=== PATIENT | female | born 1985 | race Caucasian/White ===

== ENCOUNTER 2018-07-01 13:21 | Emergency (ER) | payer OTHER ==
[~2018-07-01] VITALS: Ht 149.9 cm; Wt 72.6 kg
--- NOTE | 2018-07-01 14:43 | ED Upper Extremity ---
General Chief Complaint: Laceration Stated Complaint: THUMB LACERATION Nursing Triage Note: TO ROOM WITH LACERATION TO L THUMB CUT ON KNIFE Nursing Sepsis Screen: No Definite Risk Source: patient Exam Limitations: no limitations History of Present Illness Date Seen by Provider: Jul 01, 2018 Time Seen by Provider: 14:41 Initial Comments To ER per private vehicle with reports of a laceration to the dorsal IP joint of the left thumb from a knife at work at [employer] is prior to arrival. Last tetanus vaccination date is unknown. Onset: just prior to arrival Severity: mild Pain/Injury Location: left thumb Modifying Factors: Worse With Movement Allergies and Home Medications Allergies Coded Allergies: hydrocodone (Verified Allergy, Unknown, 07/01/18) Patient Home Medication List Home Medication List Reviewed: Yes Review of Systems Constitutional: see HPI EENTM: see HPI Respiratory: no symptoms reported Cardiovascular: no symptoms reported Genitourinary: no symptoms reported Musculoskeletal: see HPI Skin: see HPI Psychiatric/Neurological: No Symptoms Reported Past Kibbfev-Lppkib-Ubghuw Hx Patient Social History Alcohol Use: Denies Use Recreational Drug Use: No Smoking Status: Never a Smoker Recent Foreign Travel: No Contact w/Someone Who Travel: No Recent Infectious Disease Expo: No Past Medical History Surgeries: Yes Tubal Ligation Cardiac: No Neurological: No Endocrine: No Integumentary: No Physical Exam Vital Signs Vital Signs - First Documented 07/01/18 13:21 Pulse 83 Resp 18 B/P (MAP) 118/76 (90) Pulse Ox 98 O2 Delivery Room Air Capillary Refill : Less Than 3 Seconds Height, Weight, BMI Height: 4'11.00" Weight: 160lbs. oz. [id number]; BMI Method:Stated General Appearance: WD/WN, no apparent distress HEENT: PERRL/EOMI, normal ENT inspection Neck: non-tender, full range of motion Respiratory: no respiratory distress, no accessory muscle use Shoulder: normal inspection, non-tender Elbow/Forearm: normal inspection, non-tender, Right Wrist: Yes normal inspection, Yes non-tender Hand: Left, laceration (there is a 1 cm superficial skin flap to the IP joint dorsally left thumb. Full extensor mechanism of the thumb intact. She does report numbness to the thumb distally but states that it may be because she was squeezing her thumb so hard. This will be closed with skin glue.) Neurologic/Psychiatric: alert, normal mood/affect, oriented x 3 Skin: normal color, warm/dry Progress/Results/Core Measures Results/Orders My Orders Orders - SYLVIA ANDRADE APRN Dipht,Pertuss(Acell),Tet Adult (Boostrix (07/01/18 14:45) Vital Signs/I&O 07/01/18 13:21 Pulse 83 Resp 18 B/P (MAP) 118/76 (90) Pulse Ox 98 O2 Delivery Room Air Blood Pressure Mean: 90 Departure Impression Primary Impression: Skin laceration Disposition: 01 HOME, SELF-CARE Condition: Stable Departure-Patient Inst. Decision time for Depature: 14:42 Referrals: NO,LOCAL PHYSICIAN (PCP/Family) Primary Care Physician Patient Instructions: Laceration Repair With Glue (DC) Add. Discharge Instructions: 1. Allow the glue to follow off on its own in 3-5 days 2. Wear the finger splint at all times except when showering to keep from bending the thumb and prematurely peeling loose the skin glue. Return to ER for any swelling redness or sign of infection. All discharge instructions reviewed with patient and/or family. Voiced understanding. SYLVIA ANDRADE APRN Jul 01, 2018 14:43
[2018-07-01] MEDS ORDERED: TETANUS,DIPTH,PERTUSS P/F (BOOSTRIX) 0.5 ML VIAL IM ONE (14:45)
[2018-07-01 15:10] VITALS: BP 118/76
== END 2018-07-01 15:10 | disposition home or self-care (01) ==
LOC: ER 13:29
DX: S61.012A Laceration without foreign body of left thumb without damage to nail, initial encounter (principal); Z88.5 Allergy status to narcotic agent; Z98.51 Tubal ligation status; Z23 Encounter for immunization; W26.0XXA Contact with knife, initial encounter; Y92.59 Other trade areas as the place of occurrence of the external cause; Y99.0 Civilian activity done for income or pay
CPT/HCPCS: 12001; 29130; 90471; 90715

== ENCOUNTER 2019-01-31 17:15 | Emergency (ER) | payer OTHER ==
[~2019-01-31] VITALS: Ht 154 cm; Wt 74.7 kg
[2019-01-31] MEDS ORDERED: NS IV 1000 ML 1,000 ML IV SCH (17:56)
[2019-01-31] MEDS ORDERED: ACETAMINOPHEN 325 MG TABLET PO ONE (18:00)
[2019-01-31] MEDS ORDERED: KETOROLAC 30 MG/ML VIAL IVP ONE (18:00)
[2019-01-31 18:25] LABS: BASOPHILS % (AUTO) 1 % (0-10); EOSINOPHILS # (AUTO) 0.3 10^3/uL (0.0-0.3); EOSINOPHILS % (AUTO) 3 % (0-10); HEMATOCRIT 38 % (35-52); HEMOGLOBIN 12.7 G/DL (11.5-16.0); LYMPHOCYTES # (AUTO) 2.6 X 10^3 (1.0-4.0); LYMPHOCYTES % (AUTO) 32 % (12-44); MEAN CORPUSCULAR HEMOGLOBIN 29 PG (25-34); MEAN CORPUSCULAR HGB CONC 33 G/DL (32-36); MEAN CORPUSCULAR VOLUME 88 FL (80-99); MEAN PLATELET VOLUME 11.3 FL (7.4-10.4); MONOCYTES # (AUTO) 0.5 X 10^3 (0.0-1.0); MONOCYTES % (AUTO) 6 % (0-12); NEUTROPHILS # (AUTO) 4.5 X 10^3 (1.8-7.8); NEUTROPHILS % (AUTO) 58 % (42-75); PLATELET COUNT 236 10^3/uL (130-400); RED CELL DISTRIBUTION WIDTH 13.2 % (10.0-14.5); WHITE BLOOD COUNT 7.9 10^3/uL (4.3-11.0)
[2019-01-31 18:47] LABS: BILIRUBIN,TOTAL 0.3 MG/DL (0.1-1.0); BUN/CREATININE RATIO 14; CALCIUM 9.3 MG/DL (8.5-10.1); CARBON DIOXIDE 23 MMOL/L (21-32); CHLORIDE 106 MMOL/L (98-107); CREATININE SERUM 0.66 MG/DL (0.60-1.30); GFR ESTIMATED > 60; GLUCOSE 111 MG/DL (70-105); POTASSIUM 3.9 MMOL/L (3.6-5.0); SODIUM 139 MMOL/L (135-145)
[2019-01-31 18:48] LABS: ALANINE AMINOTRANSFERASE 7 U/L (0-55); ALBUMIN 3.8 GM/DL (3.2-4.5); ALKALINE PHOSPHATASE 73 U/L (40-136); TOTAL PROTEIN 6.8 GM/DL (6.4-8.2)
[2019-01-31 19:12] LABS: HCG,QUALITATIVE URINE NEGATIVE (NEGATIVE)
[2019-01-31 19:46] LABS: BACTERIA,URINE TRACE /HPF; BILIRUBIN,URINE NEGATIVE (NEGATIVE); CLARITY,URINE SLT CLOUDY; COLOR,URINE YELLOW; GLUCOSE, URINE (UA) NEGATIVE (NEGATIVE); KETONES,URINE NEGATIVE (NEGATIVE); LEUKOCYTE ESTERASE ,URINE NEGATIVE (NEGATIVE); NITRITE,URINE NEGATIVE (NEGATIVE); PH,URINE 6.5 (5-9); PROTEIN,URINE NEGATIVE (NEGATIVE); RBC,URINE RARE /HPF; UROBILINOGEN,URINE 0.2 MG/DL (NORMAL); WBC,URINE RARE /HPF
[2019-01-31 19:47] LABS: AMORPHOUS SEDIMENT,UR FEW AMOR PHOSPHATE /LPF
--- NOTE | 2019-01-31 19:53 | ED General ---
General Chief Complaint: Back Problems Stated Complaint: HEADACHE; DIZZINESS; NAUSEA; DWAYNE FLANK PAIN Nursing Triage Note: Patient reports bilateral lower back pain, headache, dizziness, and nausea since 5 am this morning. She also reports chronic sores to her lower abdomen and left leg. Nursing Sepsis Screen: No Definite Risk Source of Information: Patient History of Present Illness Date Seen by Provider: Jan 31, 2019 Time Seen by Provider: 17:44 Initial Comments 33 yo F presenting with pain in her pelvis, back and head that has been intermittent over the last month. She also notes that she has had intermittent diarrhea alternating with constipation. She has some nausea at times. She has had these symptoms over the last month. She has been having some occasional dizziness. She feels that she has no association with eating or going the bathroom. She has no pain with urination. She has not seen any blood in her urine. She has no association with her menstrual periods. Her last menstrual period was 3 weeks ago. She also has been having some blisters and sores that h ave been showing up on her abdomen and legs. She does not have a primary provider at this point Allergies and Home Medications Allergies Coded Allergies: hydrocodone (Verified Allergy, Unknown, 07/01/18) Home Medications Dicyclomine HCl 20 Mg Tablet, 20 MG PO TID PRN for pelvic pain/back pain Prescribed by: VINAY HANSEN on 01/31/192035 Patient Home Medication List Home Medication List Reviewed: Yes Review of Systems Review of Systems Constitutional: No chills; dizziness (intermittent); No fever EENTM: No ear discharge, No hearing loss, No blurred vision, No vision loss, No dental problems, No mouth pain, No nose congestion, No throat pain Respiratory: No cough, No hemoptysis, No orthopnea, No phlegm, No short of breath Cardiovascular: No chest pain Gastrointestinal: abdominal pain (low abdomen and pelvis area), constipation (alternating with diarrhea), diarrhea (alternating with constipation), nausea; No vomiting Genitourinary: No dysuria Musculoskeletal: back pain Skin: see HPI Psychiatric/Neurological: Headache Past Urnvshk-Izamgm-Sdcftj Hx Patient Social History Alcohol Use: Occasionally Uses Recreational Drug Use: No Smoking Status: Current Everyday Smoker Type Used: Cigarettes 2nd Hand Smoke Exposure: Yes Recent Foreign Travel: No Contact w/Someone Who Travel: No Recent Infectious Disease Expo: No Recent Hopitalizations: No Physical Abuse: No Sexual Abuse: No Mistreated: No Fear: No Seasonal Allergies Seasonal Allergies: No Past Medical History Surgeries: Yes Tubal Ligation Respiratory: No Cardiac: No Neurological: No Genitourinary: No Gastrointestinal: No Musculoskeletal: No Endocrine: No HEENT: No Cancer: No Psychosocial: No Integumentary: No Physical Exam Vital Signs Vital Signs - First Documented 01/31/19 17:25 Temp 37.2 Pulse 92 Resp 16 B/P (MAP) 142/85 (104) Pulse Ox 98 O2 Delivery Room Air Capillary Refill : Less Than 3 Seconds Height, Weight, BMI Height: 4'11.00" Weight: 160lbs. oz. 72.686657hx; 31.00 BMI Method:Stated General Appearance: No Apparent Distress, WD/WN HEENT: PERRL/EOMI, Normal ENT Inspection, Pharynx Normal Neck: Full Range of Motion, Normal Inspection, Non Tender, Supple Respiratory: Chest Non Tender, Lungs Clear, Normal Breath Sounds Cardiovascular: Regular Rate, Rhythm, Normal Peripheral Pulses Gastrointestinal: Normal Bowel Sounds, No Pulsatile Mass, Non Tender, Soft Extremity: Normal Capillary Refill, Normal Inspection, Normal Range of Motion Neurologic/Psychiatric: Alert, Oriented x3, No Motor/Sensory Deficits Skin: Normal Color, Warm/Dry Progress/Results/Core Measures Suspected Sepsis Recent Fever Within 48 Hours: No Infection Criteria Present: None New/Unexplained Altered Menta: No Sepsis Screen: No Definite Risk SIRS Temperature: Pulse: 92 Respiratory Rate: 16 Laboratory Tests 01/31/19 18:18: White Blood Count 7.9 Blood Pressure 142 /85 Mean: 104 Laboratory Tests 01/31/19 18:18: Creatinine 0.66, Platelet Count 236, Total Bilirubin 0.3 Results/Orders Lab Results Laboratory Tests Test 01/31/19 17:05 01/31/19 18:18 Range/Units Urine Color YELLOW Urine Clarity SLT CLOUDY Urine pH 6.5 5-9 Urine Specific [place] 1.015 L 1.016-1.022 Urine Protein NEGATIVE NEGATIVE Urine Glucose (UA) NEGATIVE NEGATIVE Urine Ketones NEGATIVE NEGATIVE Urine Nitrite NEGATIVE NEGATIVE Urine Bilirubin NEGATIVE NEGATIVE Urine Urobilinogen 0.2 NORMAL MG/DL Urine Leukocyte Esterase NEGATIVE NEGATIVE Urine RBC (Auto) NEGATIVE NEGATIVE Urine RBC RARE /HPF Urine WBC RARE /HPF Urine Squamous Epithelial Cells 10-25 H /HPF Urine Crystals PRESENT H /LPF Urine Amorphous Sediment FEW MER PHOSPHATE H /LPF Urine Bacteria TRACE /HPF Urine Casts NONE /LPF Urine Mucus NONE /LPF Urine Culture Indicated NO Urine Test NEGATIVE NEGATIVE White Blood Count 7.9 4.3-11.0 10^3/uL Red Blood Count 4.36 4.35-5.85 10^6/uL Hemoglobin 12.7 11.5-16.0 G/DL Hematocrit 38 35-52 % Mean Corpuscular Volume 88 80-99 FL Mean Corpuscular Hemoglobin 29 25-34 PG Mean Corpuscular Hemoglobin Concent 33 32-36 G/DL Red Cell Distribution Width 13.2 10.0-14.5 % Platelet Count 236 130-400 10^3/uL Mean Platelet Volume 11.3 H 7.4-10.4 FL Neutrophils (%) (Auto) 58 42-75 % Lymphocytes (%) (Auto) 32 12-44 % Monocytes (%) (Auto) 6 0-12 % Eosinophils (%) (Auto) 3 0-10 % Basophils (%) (Auto) 1 0-10 % Neutrophils # (Auto) 4.5 1.8-7.8 X 10^3 Lymphocytes # (Auto) 2.6 1.0-4.0 X 10^3 Monocytes # (Auto) 0.5 0.0-1.0 X 10^3 Eosinophils # (Auto) 0.3 0.0-0.3 10^3/uL Basophils # (Auto) 0.0 0.0-0.1 10^3/uL Sodium Level 139 135-145 MMOL/L Potassium Level 3.9 3.6-5.0 MMOL/L Chloride Level 106 98-107 MMOL/L Carbon Dioxide Level 23 21-32 MMOL/L Anion Gap 10 5-14 MMOL/L Blood Urea Nitrogen 9 7-18 MG/DL Creatinine 0.66 0.60-1.30 MG/DL Estimat Glomerular Filtration Rate > 60 BUN/Creatinine Ratio 14 Glucose Level 111 H 70-105 MG/DL Calcium Level 9.3 8.5-10.1 MG/DL Corrected Calcium 9.5 8.5-10.1 MG/DL Total Bilirubin 0.3 0.1-1.0 MG/DL Aspartate Amino Transf (AST/SGOT) 13 5-34 U/L Alanine Aminotransferase (ALT/SGPT) 7 0-55 U/L Alkaline Phosphatase 73 40-136 U/L Total Protein 6.8 6.4-8.2 GM/DL Albumin 3.8 3.2-4.5 GM/DL Medications Given in ED Current Medications Medications Dose Ordered Sig/Cinthya Route Start Time Stop Time Status Last Admin Dose Admin Acetaminophen 975 mg ONCE ONCE PO 01/31/19 18:00 01/31/19 18:01 DC 01/31/19 18:22 975 MG Ketorolac Tromethamine 30 mg ONCE ONCE IVP 01/31/19 18:00 01/31/19 18:01 DC 01/31/19 18:22 30 MG Vital Signs/I&O 01/31/19 01/31/19 17:25 20:43 Temp 37.2 Pulse 92 70 Resp 16 16 B/P (MAP) 142/85 (104) 117/75 Pulse Ox 98 97 O2 Delivery Room Air Room Air 02/01/19 00:00 Intake Total 1000 ml Balance 1000 ml Capillary Refill : Less Than 3 Seconds Blood Pressure Mean: 104 Progress Note : Progress Note Basic labs were ordered by the dictation provider. I reviewed these with the patient and the fact that she was having a normal white blood cell count. Her electrolytes and kidney and liver functions were normal. The urinalysis did not demonstrate any acute signs of infection. Advised to check back with the primary provider for further testing. I did offer to do a CT scan or imaging here however the patient stated she was feeling a lot better and wanted to wait and do further evaluation through a primary provider Departure Impression Primary Impression: Pelvic pain in female Additional Impressions: Low back pain Qualified Codes: M54.5 - Low back pain Irritable bowel disease Qualified Codes: K58.2 - Mixed irritable bowel syndrome Disposition: HOME, SELF-CARE Condition: Stable Departure-Patient Inst. Decision time for Depature: 20:18 Referrals: NO,LOCAL PHYSICIAN (PCP) Primary Care Physician [facility] [place] Patient Instructions: Acute Pelvic Pain (DC), Irritable Bowel Syndrome (DC), Low Back Pain in Adults Add. Discharge Instructions: Stay well hydrated and get plenty of rest Follow up with clinic and they may need to do some GI testing or other testing to see what was causing your symptoms Try the Bentyl (Dicyclomine) for your pain and symptoms. Ibuprofen may help with your back pain All discharge instructions reviewed with patient and/or family. Voiced understanding. Scripts Dicyclomine HCl (Dicyclomine HCl) 20 Mg Tablet 20 MG PO TID PRN for pelvic pain/back pain for 15 Days, #45 TAB 0 Refills Prov: VINAY HANSEN MD 01/31/19 Work/School Note: Work Release Form Date Seen in the Emergency Department: Jan 31, 2019 Return to Work: Feb 02, 2019 Restrictions: No Restrictions VINAY HANSEN MD Jan 31, 2019 19:53
[2019-01-31] MEDS ORDERED: DICY20TA10 PO (20:36)
[2019-01-31 20:43] VITALS: BP 117/75
== END 2019-01-31 20:43 | disposition home or self-care (01) ==
LOC: EDUNIT# 17:15 → ER FS 17:16
DX: R10.2 Pelvic and perineal pain (principal); M54.5 Low back pain; K58.9 Irritable bowel syndrome, unspecified; F17.210 Nicotine dependence, cigarettes, uncomplicated; Z88.5 Allergy status to narcotic agent; Z98.51 Tubal ligation status
CPT/HCPCS: 36415; 80053; 81000; 84703; 85025; 96361; 96374

== ENCOUNTER 2020-10-17 19:49 | Emergency (ER) | payer SELFPAY ==
[~2020-10-17 19:49] MED LIST: DICY20TA10 PO
[2020-10-17] MEDS ORDERED: KETOROLAC 60 MG/2 ML VIAL IM ONE (20:00)
[2020-10-17] MEDS ORDERED: GABAPENTIN 100 MG (NEURONTIN) CAP PO ONE (20:00)
--- NOTE | 2020-10-17 20:02 | ED EENT ---
History of Present Illness General Stated Complaint: RT SIDE FACIAL PAIN Source: patient Exam Limitations: no limitations History of Present Illness Date Seen by Provider: Oct 17, 2020 Time Seen by Provider: 19:49 Initial Comments Patient to the ER by private conveyance with chief complaint of 2 to 3 days of nontraumatic pain to the right side of her face starting up around her preauricular jain area and radiating down to her right jaw. She does not have any problems with her teeth. No painful chewing or swelling of the gums. Pain is below the mandible. She also has some pain in her right ear. No discharge. She does not have a history of frequent ear infections. No nasal congestion fever chills nausea vomiting. She is been using Tylenol ibuprofen with very little relief of pain. Allergies and Home Medications Allergies Coded Allergies: hydrocodone (Verified Allergy, Unknown, 07/01/18) Home Medications Dicyclomine HCl 20 Mg Tablet, 20 MG PO TID PRN for pelvic pain/back pain Prescribed by: VINAY HANSEN on 01/31/192035 Patient Home Medication List Home Medication List Reviewed: Yes Review of Systems Review of Systems Constitutional: No chills, No fever, No malaise Eyes: Denies Blindness, Denies Drainage Ears: See HPI; Denies Dizziness; Pain; Denies Tinnitus, Denies Bloody Discharge, Denies Purulent Discharge Nose: denies clots, denies congestion, denies epistaxis Mouth: denies clots, denies loose teeth Throat: denies pain, denies swelling Respiratory: No cough, No short of breath Cardiovascular: No chest pain, No palpitations Gastrointestinal: No abdominal pain, No nausea All Other Systems Reviewed Negative Unless Noted: Yes Past Lndmqgt-Tpsglk-Eeqihl Hx Patient Social History Alcohol Use: Regular Use Smoking Status: Current Everyday Smoker Type Used: Cigarettes 2nd Hand Smoke Exposure: Yes Recent Hopitalizations: No Seasonal Allergies Seasonal Allergies: No Past Medical History Surgeries: Yes Tubal Ligation Respiratory: No Cardiac: No Neurological: No Genitourinary: No Gastrointestinal: No Musculoskeletal: No Endocrine: No HEENT: No Cancer: No Psychosocial: No Integumentary: No Physical Exam Height, Weight, BMI Height: 4'11.00" Weight: 160lbs. oz. 72.458473ep; 31.00 BMI Method:Stated General Appearance: WD/WN, mild distress Eyes: bilateral eye normal inspection, bilateral eye PERRL, bilateral eye EOMI Ears: bilateral ear auricle normal, bilateral ear canal normal, bilateral ear TM dull (With mucoid effusion and scant injection on the right TM with no loss of landmarks or bulging.) Mouth/Throat: normal mouth inspection, pharynx normal; No dental tenderness, No excessive drooling, No foreign body, No mandibular swelling Neck: non-tender, full range of motion, supple, normal inspection Cardiovascular: normal peripheral pulses, regular rate, rhythm Neurologic/Psychiatric: enterprise data architect II-XII nml as tested, no motor/sensory deficits, alert, normal mood/affect, oriented x 3 Skin: normal color, warm/dry Progress/Results/Core Measures Results/Orders My Orders Orders - CUCA URENA Gabapentin Capsule/Tablet (Neurontin Cap (10/17/20 20:00) Ketorolac Injection (Toradol Injection) (10/17/20 20:00) Progress Progress Note : Time: 20:05 Progress Note Viral source for a mucoid otitis media effusion and likely inhabiting the right 5th cranial nerve second and third branches. Gabapentin, prescription for acyclovir and Toradol for discomfort tonight. Departure Impression Primary Impression: Trigeminal neuralgia of right side of face Additional Impression: Acute otitis media with effusion of both ears Disposition: 01 HOME, SELF-CARE Condition: Stable Departure-Patient Inst. Decision time for Depature: 20:06 Referrals: NO,LOCAL PHYSICIAN (PCP/Family) Primary Care Physician Patient Instructions: Serous Otitis Media (DC), Trigeminal Neuralgia Add. Discharge Instructions: Drink plenty of fluids. Ibuprofen 800 mg every 8 hours as necessary for pain. Tylenol 1000 mg every 8 hours as necessary for pain. Gabapentin 100 mg 3 times a day as necessary for facial pain. Gabapentin may cause drowsiness. Acyclovir 800 mg 5 times a day for the next week to treat the viral infection involving your ears and facial nerve. Flonase 2 puffs each nostril twice a day for the next week to help relieve the pressure in your ears. Warm washcloths applied directly to your face for relief of pain. Scripts Gabapentin (Gabapentin) 100 Mg Capsule 100 MG PO Q8H PRN for facial pain, #20 CAP 0 Refills Prov: CUCA URENA 10/17/20 Acyclovir (Acyclovir) 800 Mg Tablet 800 MG PO 5XD for 7 Days, #35 TAB 0 Refills Prov: CUCA URENA 10/17/20 CUCA URENA Oct 17, 2020 20:02
[2020-10-17] MEDS ORDERED: ACYC-112 PO (20:09)
[2020-10-17] MEDS ORDERED: GABA-486 PO (20:09)
[2020-10-17 20:15] VITALS: BP 139/89
== END 2020-10-17 20:16 | disposition home or self-care (01) ==
LOC: EDUNIT# 19:49 → ER FS 19:50
DX: G50.0 Trigeminal neuralgia (principal); H65.93 Unspecified nonsuppurative otitis media, bilateral; F17.210 Nicotine dependence, cigarettes, uncomplicated; Z88.5 Allergy status to narcotic agent
CPT/HCPCS: 99283